=== PATIENT | female | born 1980 | race Caucasian/White ===

== ENCOUNTER 2018-08-10 12:36 | Emergency (ER) | payer OTHER ==
[~2018-08-10] VITALS: Ht 157.5 cm; Wt 50.8 kg
[~2018-08-10 12:36] MED LIST: ACETAMINOPHEN-1 EAC1 PO; ADVAIR HFA115 MCG/21 INH; BACTRIM DS TAB1 EACH PO; BACTROBAN CREAM30 G1 TOP; BISACODYL SUPP10 MG RECTAL; CITRATE OF MAG296 ML PO; CLEOCIN HCL150 MG PO; CLEOCIN HCL300 MG PO; CYCLOBENZAPRINE5 MG PO; DOXYCYCLINE 10100 MG PO; ERYTHROMYCIN500 MG PO; FLEXERIL PO; HYDROCODON-ACE1 EAC7 PO; HYDROCODONE-AP1 EAC6 PO; IBUPROFEN 800800 M1 PO; KEFLEX500 MG; LIDOCAINE VISC100 M1 SWISH&SPIT; MACROBID 100 M100 M2 PO; MIRALAX17 GM PO; MORPHINE SULFAT15 M3 PO; NAPROSYN500 MG PO; NORCO 5-325 TA1 EAC1 PO; NORCO 5-325 TA1 EACH PO; PERCOCET PO; PREDNISONE 10 M10 MG PO; PRILOSEC 10MG C10 MG PO; PROAIR HFA8.5 GM; TORADOL 10 MG T10 MG PO; TRAMADOL 50 MG50 MG PO; ULTRAM 50MG TAB50 MG PO; VALTREX 500 MG500 M1 PER TUBE; XANAX 0.25 MG0.25 MG PO
[2018-08-10] MEDS ORDERED: ADVAIR HFA 230M12 GM INH (12:49)
[2018-08-10] MEDS ORDERED: PROAIR HFA8.5 GM (12:49)
[2018-08-10] MEDS ORDERED: HYDROCODONE-AP1 EAC6 PO (13:04)
[2018-08-10] MEDS ORDERED: [UNRECOGNIZED DRUG - OTHER] MISCELL (13:04)
[2018-08-10] MEDS ORDERED: ROBAXIN 750 MG750 M1 PO (13:04)
[2018-08-10 13:34] VITALS: BP 117/80
== END 2018-08-10 13:35 | disposition home or self-care (01) ==
LOC: M.ERS 12:36
DX: M54.2 Cervicalgia (principal); M62.838 Other muscle spasm; M54.6 Pain in thoracic spine; F41.9 Anxiety disorder, unspecified; J45.909 Unspecified asthma, uncomplicated; Z88.0 Allergy status to penicillin; Z88.1 Allergy status to other antibiotic agents; Z88.2 Allergy status to sulfonamides; Z88.6 Allergy status to analgesic agent; Z98.890 Other specified postprocedural states

== ENCOUNTER 2019-02-26 08:56 | Emergency (ER) | payer OTHER ==
[~2019-02-26] VITALS: Ht 157.5 cm; Wt 68.0 kg
[~2019-02-26 08:56] MED LIST changes: +ADVAIR HFA 230M12 GM INH; +ROBAXIN 750 MG750 M1 PO; +[UNRECOGNIZED DRUG - OTHER] MISCELL
[2019-02-26] MEDS ORDERED: METHADOSE40 M1 PO (09:09)
[2019-02-26 09:51] LABS: ABSOLUTE EOSINOPHILS 0.2 thou/uL (0.0-0.7); ABSOLUTE LYMPHOCYTES 2.3 thou/uL (0.8-5.3); ABSOLUTE MONOCYTES 0.6 thou/uL (0.0-1.2); ABSOLUTE NEUTROPHILS 2.9 thou/uL (1.6-8.1); BASOPHILS 0.7 %; EOSINOPHILS 3.6 %; HEMATOCRIT 47.7 % (37.0-47.0); HEMOGLOBIN 15.9 gm/dL (12.0-15.0); LYMPHOCYTES 37.5 %; MCHC 33.3 g/dL (28.0-37.0); MCV 92.9 fL (80.0-100.0); MONOCYTES 10.3 %; NUCLEATED RBCS 0 /100WBC; PLATELET COUNT* 318 thou/uL (150-400); POLYS 47.9 %; RBC 5.13 mil/uL (4.20-5.00); RDW-CV 13.3 % (10.5-14.5)
[2019-02-26 09:59] LABS: URINE BILIRUBIN NEGATIVE (Negative); URINE BLOOD 1+ (Negative); URINE CLARITY CLEAR; URINE COLOR YELLOW; URINE GLUCOSE-RANDOM NEGATIVE (Negative); URINE KETONES NEGATIVE (Negative); URINE LEUKOCYTES-REFLEX NEGATIVE (Negative); URINE NITRITE-REFLEX NEGATIVE (Negative); URINE PROTEIN NEGATIVE (Negative); URINE SPECIFIC GRAVITY 1.025 (1.005-1.030); URINE UROBILINOGEN 0.2 E.U./dl (0.2-1.0)
[2019-02-26 10:08] LABS: BACTERIA-REFLEX 1-9 Few /HPF (None Seen); CASTS None Seen /LPF (None Seen); CRYSTALS None Seen /LPF (None Seen); MUCUS >6 Heavy strn/LPF (None Seen); SQUAMOUS 4-10 Moderate /LPF (0-3); URINE RBC 0-2 Rare /HPF (0-2); URINE WBC-REFLEX 0-5 Rare /HPF (0-5)
[2019-02-26 10:12] LABS: CALCIUM 9.4 mg/dL (8.5-10.1); CREATININE 0.9 mg/dL (0.6-1.3); POTASSIUM 3.6 mmol/L (3.5-5.1)
[2019-02-26 10:16] LABS: TOTAL BILIRUBIN 0.7 mg/dL (<0.1-1.0); TOTAL PROTEIN 8.1 g/dL (6.4-8.2)
[2019-02-26 10:21] LABS: AMP/METHAMP Negative (Negative); BARBITURATES Negative (Negative); BENZODIAZEPINES Negative (Negative); COCAINE Negative (Negative); METHADONE POSITIVE (Negative); OPIATES Negative (Negative); PCP Negative (Negative); THC Negative (Negative)
[2019-02-26] MEDS ORDERED: PROMS25 WY RECTAL (10:28)
[2019-02-26 10:42] VITALS: BP 130/80
== END 2019-02-26 10:42 | disposition home or self-care (01) ==
LOC: M.ERS 08:56
PROVIDERS: Emergency Medicine
DX: R11.2 Nausea with vomiting, unspecified (principal); F41.9 Anxiety disorder, unspecified; J45.909 Unspecified asthma, uncomplicated; Z98.51 Tubal ligation status; Z88.1 Allergy status to other antibiotic agents; Z88.0 Allergy status to penicillin; Z88.2 Allergy status to sulfonamides; Z88.5 Allergy status to narcotic agent; Z79.899 Other long term (current) drug therapy

== ENCOUNTER 2021-01-08 20:28 | Emergency (ER) | payer OTHER ==
[~2021-01-08] VITALS: Ht 157.5 cm; Wt 61.2 kg
[~2021-01-08 20:28] MED LIST changes: +METHADOSE40 M1 PO; +PROMS25 WY RECTAL
[2021-01-08] MEDS ORDERED: VALACYCLOVIR500 MG PO (20:43)
[2021-01-08 20:45] LABS: URINE BILIRUBIN 1+ (Negative); URINE BLOOD 2+ (Negative); URINE COLOR YELLOW; URINE GLUCOSE-RANDOM NEGATIVE (Negative); URINE KETONES TRACE (Negative); URINE LEUKOCYTES-REFLEX 1+ (Negative); URINE NITRITE-REFLEX POSITIVE (Negative); URINE PROTEIN TRACE (Negative); URINE SPECIFIC GRAVITY >= 1.030 (1.005-1.030); URINE UROBILINOGEN 0.2 E.U./dl (0.2-1.0)
[2021-01-08 20:46] LABS: URINE CLARITY SL CLOUDY
[2021-01-08 20:55] LABS: BACTERIA-REFLEX >30 Many /HPF (None Seen); CELLULAR CASTS 0-3 Few /LPF (None Seen); COARSE GRANULAR CASTS 0-3 Few /LPF (None Seen); CRYSTALS None Seen /LPF (None Seen); FINE GRANULAR CASTS 0-3 Few /LPF (None Seen); ICTOTEST (BILI CONFIRMATORY) Negative (Negative); MUCUS 4-6 Moderate strn/LPF (None Seen); SQUAMOUS 0-3 Few /LPF (0-3); TRANSITIONAL EPITHEL CELL 0-3 Few /LPF (None Seen); URINE WBC-REFLEX 6-15 Few /HPF (0-5); WBC CLUMPS Few (None Seen)
[2021-01-08] MEDS ORDERED: MACROBID 100 M100 M2 PO (21:00)
[2021-01-08 21:24] VITALS: BP 117/86
== END 2021-01-08 21:25 | disposition home or self-care (01) ==
LOC: M.ERS 20:28
PROVIDERS: Emergency Medicine
DX: N30.01 Acute cystitis with hematuria (principal); J45.909 Unspecified asthma, uncomplicated; Z98.51 Tubal ligation status; Z88.1 Allergy status to other antibiotic agents; Z88.0 Allergy status to penicillin

== ENCOUNTER 2021-03-24 18:58 | Emergency (ER) | payer OTHER ==
[~2021-03-24] VITALS: Ht 157.5 cm; Wt 56.7 kg
[~2021-03-24 18:58] MED LIST changes: +VALACYCLOVIR500 MG PO
[2021-03-24] MEDS ORDERED: ADDERALL 20 MG20 MG (19:10)
[2021-03-24] MEDS ORDERED: ALPRAZOLAM 0.0.25 M1 (19:10)
[2021-03-24] MEDS ORDERED: ADVAIR 500-501 EACH (19:11)
[2021-03-24 22:14] LABS: URINE BILIRUBIN NEGATIVE (Negative); URINE BLOOD TRACE (Negative); URINE CLARITY CLEAR; URINE COLOR YELLOW; URINE GLUCOSE-RANDOM NEGATIVE (Negative); URINE KETONES TRACE (Negative); URINE LEUKOCYTES-REFLEX NEGATIVE (Negative); URINE NITRITE-REFLEX NEGATIVE (Negative); URINE PROTEIN TRACE (Negative); URINE SPECIFIC GRAVITY >= 1.030 (1.005-1.030); URINE UROBILINOGEN 0.2 E.U./dl (0.2-1.0)
[2021-03-24 22:53] VITALS: BP 97/66
== END 2021-03-24 22:54 | disposition home or self-care (01) ==
LOC: M.ERS 18:58
PROVIDERS: Personal Emergency Response Attendant
DX: L27.0 Generalized skin eruption due to drugs and medicaments taken internally (principal); R10.2 Pelvic and perineal pain; F41.9 Anxiety disorder, unspecified; J45.909 Unspecified asthma, uncomplicated; Z98.51 Tubal ligation status; Z79.899 Other long term (current) drug therapy; Z88.0 Allergy status to penicillin; Z88.2 Allergy status to sulfonamides; Z88.5 Allergy status to narcotic agent

== ENCOUNTER 2021-08-19 04:16 | Emergency (ER) | payer OTHER ==
[~2021-08-19] VITALS: Ht 157.5 cm; Wt 56.7 kg
[~2021-08-19 04:16] MED LIST changes: +ADDERALL 20 MG20 MG; +ADVAIR 500-501 EACH; +ALPRAZOLAM 0.0.25 M1
[2021-08-19] MEDS ORDERED: PROAIR HFA8.5 GM INH (04:40)
[2021-08-19] MEDS ORDERED: MACROBID 100 M100 M1 PO (04:40)
[2021-08-19] MEDS ORDERED: HYDROCODON-ACE1 EAC8 PO (04:40)
[2021-08-19] MEDS ORDERED: ACYCLOVIR 800800 MG PO (04:40)
[2021-08-19] MEDS ORDERED: PREDNISONE50 MG PO (04:40)
[2021-08-19 05:08] LABS: URINE BILIRUBIN NEGATIVE (Negative); URINE BLOOD TRACE (Negative); URINE CLARITY CLEAR; URINE COLOR YELLOW; URINE GLUCOSE-RANDOM NEGATIVE (Negative); URINE KETONES NEGATIVE (Negative); URINE LEUKOCYTES-REFLEX TRACE (Negative); URINE NITRITE-REFLEX NEGATIVE (Negative); URINE PROTEIN NEGATIVE (Negative); URINE UROBILINOGEN 0.2 E.U./dl (0.2-1.0)
[2021-08-19 05:49] LABS: CASTS None Seen /LPF (None Seen); SQUAMOUS 0-3 Few /LPF (0-3)
[2021-08-19 05:50] LABS: BACTERIA-REFLEX None Seen /HPF (None Seen); CRYSTALS None Seen /LPF (None Seen); URINE RBC 0-2 Rare /HPF (0-2); URINE WBC-REFLEX 6-15 Few /HPF (0-5)
[2021-08-19 05:58] VITALS: BP 132/90
== END 2021-08-19 05:58 | disposition home or self-care (01) ==
LOC: M.ERS 04:16
PROVIDERS: Emergency Medicine
DX: N39.0 Urinary tract infection, site not specified (principal); B00.9 Herpesviral infection, unspecified; J45.909 Unspecified asthma, uncomplicated; F41.9 Anxiety disorder, unspecified; Z98.51 Tubal ligation status; Z79.899 Other long term (current) drug therapy; Z88.1 Allergy status to other antibiotic agents; Z88.0 Allergy status to penicillin; Z88.2 Allergy status to sulfonamides; Z88.8 Allergy status to other drugs, medicaments and biological substances